=== PATIENT | female | born 1995 | race Caucasian/White ===

== ENCOUNTER 2022-09-30 08:36 | Emergency (ER) | payer OTHER ==
[~2022-09-30] VITALS: Ht 177.8 cm; Wt 90.8 kg
[2022-09-30] MEDS ORDERED: HYDROCODON-ACE1 EA10 PO (09:59)
[2022-09-30 11:02] VITALS: BP 140/68
== END 2022-09-30 11:05 | disposition home or self-care (01) ==
LOC: ED 08:36
DX: S23.3XXA Sprain of ligaments of thoracic spine, initial encounter (principal); W09.8XXA Fall on or from other playground equipment, initial encounter; Y93.44 Activity, trampolining
CPT/HCPCS: 72070; J1885